=== PATIENT | female | born 1995 | race Two or more races ===

== ENCOUNTER 2022-12-03 21:15 | Emergency (ER) | payer OTHER ==
[~2022-12-03] VITALS: Ht 160 cm; Wt 90.7 kg
[2022-12-03] MEDS ORDERED: ZYRTEC10 M3 (21:22)
== END 2022-12-04 02:24 | disposition home or self-care (01) ==
LOC: ER 21:15
DX: O99.511 Diseases of the respiratory system complicating pregnancy, first trimester (principal); O21.8 Other vomiting complicating pregnancy; Z3A.01 Less than 8 weeks gestation of pregnancy; J10.1 Influenza due to other identified influenza virus with other respiratory manifestations; J45.909 Unspecified asthma, uncomplicated; Z20.822 Contact with and (suspected) exposure to COVID-19; Z88.0 Allergy status to penicillin

== ENCOUNTER 2023-03-25 06:51 | Emergency (ER) | payer OTHER ==
[~2023-03-25] VITALS: Ht 160 cm; Wt 89.8 kg
[~2023-03-25 06:51] MED LIST: ZYRTEC10 M3
[2023-03-25] MEDS ORDERED: IPRATROPIU0.2 MG/1 M IH (07:30)
[2023-03-25] MEDS ORDERED: PRIMACARE SOFT1 EACH PO (07:30)
== END 2023-03-25 10:19 | disposition home or self-care (01) ==
LOC: ER 06:51
DX: J45.901 Unspecified asthma with (acute) exacerbation (principal); Z88.0 Allergy status to penicillin
CPT/HCPCS: 94640; 96365; J2930

== ENCOUNTER 2023-06-09 20:56 | Inpatient (IN) | payer OTHER ==
[~2023-06-09] VITALS: Ht 157.5 cm; Wt 93.0 kg
[~2023-06-09 20:56] MED LIST changes: +IPRATROPIU0.2 MG/1 M IH; +PRIMACARE SOFT1 EACH PO
[2023-06-09] MEDS ORDERED: MAGNESIUM SULFATE IN WATER 4 GM/100 ML PIGGYBACK IV ONE (21:19)
[2023-06-09] MEDS ORDERED: LABETALOL HCL 200 MG TABLET PO ONE (21:20)
[2023-06-09] MEDS ORDERED: BETAMETHASONE ACETATE,SOD PHOS 30 MG/5 ML ML ONE (21:22)
[2023-06-09] MEDS ORDERED: RINGERS SOLUTION,LACTATED 1,000 ML IV SCH (21:30)
[2023-06-09] MEDS ORDERED: BETAMETHASONE ACETATE,SOD PHOS 30 MG/5 ML ML IM ONE (21:30)
[2023-06-09] MEDS ORDERED: ACETAMINOPHEN 500 MG GEL..CAP PO PRN (21:45)
[2023-06-09] MEDS ORDERED: LABETALOL HCL 200 MG TABLET PO SCH (21:45)
[2023-06-09] MEDS ORDERED: MAGNESIUM SULFATE IN WATER 100 ML IV ONE (21:45)
[2023-06-09] MEDS ORDERED: MAGNESIUM SULFATE IN WATER 0.04 GM/ML IV.SOLN IV SCH (21:45)
[2023-06-09] MEDS ORDERED: CETIRIZINE HCL 5 MG/5 ML ML PO SCH (21:45)
[2023-06-09] MEDS ORDERED: FAMOTIDINE/PF 20 MG/2 ML VIAL IV PRN (21:45)
[2023-06-09 22:11] LABS: HEMATOCRIT 32.8 % (36.0-45.00); MEAN CELL VOLUME 85.3 fL (80.00-100.00); MEAN CORPUSCULAR HEMOGLOBIN 28.6 pg (27.00-32.0); MEAN CORPUSCULAR HGB CONC 33.6 g/dl (32.0-36.0); PLATELET COUNT 308 K/uL (150-450); RED BLOOD COUNT 3.85 M/uL (4.00-6.00); RED CELL DISTRIBUTION WIDTH 13.6 % (11.5-14.5); URINE APPEARANCE Cloudy; URINE BILIRRUBIN Negative (NEGATIVE); URINE BLOOD Negative; URINE COLOR Yellow; URINE GLUCOSE Negative (NEGATIVE); URINE LEUKOCYTE Moderate; URINE NITRATE Negative; URINE PROTEIN 30 (NEGATIVE)
[2023-06-09 22:14] LABS: URINE BACTERIA 4806.7 uL (0.0-1933); URINE RBC 5.1 uL (0.0-20.8); URINE WBC 408.1 uL (0.0-23.2)
[2023-06-09 22:34] LABS: ALBUMIN 2.9 gm/dL (3.4-5.0); BILIRUBIN TOTAL 0.38 mg/dL (0.3-1.2); CALCIUM 9.1 mg/dL (8.5-10.1); CREATININE SERUM 0.56 mg/dL (0.55-1.02); GFR 128.9; GLOBULINA 3.2 G/DL (2.4-3.5); POTASSIUM 4.13 mEq/L (3.5-5.1); TOTAL PROTEIN 6.1 gm/dL (6.4-8.2)
[2023-06-09 22:37] LABS: INR < 0.93; PROTHROMBIN TIME 9.5 SECONDS (9.0-11.5)
[2023-06-09 22:38] LABS: PARTIAL THROMBOPLASTIN TIME 26.2 SECONDS (22.0-34.0)
[2023-06-10 08:03] LABS: ALBUMIN 2.6 gm/dL (3.4-5.0); BILIRUBIN TOTAL 0.4 mg/dL (0.3-1.2); CALCIUM 9.1 mg/dL (8.5-10.1); CREATININE SERUM 0.63 mg/dL (0.55-1.02); GFR 112.52; GLOBULINA 3.6 G/DL (2.4-3.5); MAGNESIUM 4.1 mg/dL (1.8-2.4); POTASSIUM 4.55 mEq/L (3.5-5.1); TOTAL PROTEIN 6.2 gm/dL (6.4-8.2)
[2023-06-10 08:07] LABS: HEMATOCRIT 31.7 % (36.0-45.00); HEMOGLOBIN 10.3 g/dL (12.0-15.00); MEAN CORPUSCULAR HGB CONC 32.5 g/dl (32.0-36.0); PLATELET COUNT 320 K/uL (150-450); RED BLOOD COUNT 3.69 M/uL (4.00-6.00); RED CELL DISTRIBUTION WIDTH 14.1 % (11.5-14.5)
[2023-06-10] MEDS ORDERED: MAGNESIUM SULFATE IN WATER 500 ML IV SCH (09:45)
[2023-06-10] MEDS ORDERED: CETIRIZINE HCL 5 MG/5 ML ML PO SCH (21:00)
[2023-06-10] MEDS ORDERED: BETAMETHASONE ACETATE,SOD PHOS 30 MG/5 ML ML IM ONE (21:30)
[2023-06-10] MEDS ORDERED: MAGNESIUM SULFATE IN WATER IV SCH (21:45)
== END 2023-06-11 14:21 | disposition home or self-care (01) | DRG 833 ==
LOC: LDR 20:56
PROVIDERS: ADMIT Obstetrics & Gynecology Gynecology; ATTEND Obstetrics & Gynecology Gynecology
PROC: 4A1HXCZ Monitoring of Products of Conception, Cardiac Rate, External Approach (ICD-10-PCS; principal; 2023-06-09)
PROC: BY4FZZZ Ultrasonography of Third Trimester, Single Fetus (ICD-10-PCS; 2023-06-09)
DX: O13.3 Gestational [pregnancy-induced] hypertension without significant proteinuria, third trimester (principal); Z3A.34 34 weeks gestation of pregnancy; Z20.822 Contact with and (suspected) exposure to COVID-19

== ENCOUNTER 2023-06-13 13:32 | Inpatient (IN) | payer OTHER ==
[~2023-06-13] VITALS: Ht 157.5 cm; Wt 3.2 kg
[2023-06-13] MEDS ORDERED: MAGNESIUM SULFATE IN WATER 0.04 GM/ML IV.SOLN IV ONE (13:39)
[2023-06-13] MEDS ORDERED: MAGNESIUM SULFATE IN WATER 4 GM/100 ML PIGGYBACK IV ONE (13:39)
[2023-06-13 14:11] LABS: URINE APPEARANCE Cloudy; URINE BILIRRUBIN Negative (NEGATIVE); URINE BLOOD Negative; URINE COLOR Yellow; URINE GLUCOSE Negative (NEGATIVE); URINE LEUKOCYTE Large; URINE NITRATE Negative; URINE PROTEIN Negative (NEGATIVE)
[2023-06-13] MEDS ORDERED: LABETALOL HCL200 MG PO (14:13)
[2023-06-13 14:15] LABS: HEMATOCRIT 30.7 % (36.0-45.00); HEMOGLOBIN 10.1 g/dL (12.0-15.00); MEAN CELL VOLUME 85.1 fL (80.00-100.00); MEAN CORPUSCULAR HGB CONC 32.8 g/dl (32.0-36.0); PLATELET COUNT 305 K/uL (150-450); RED BLOOD COUNT 3.61 M/uL (4.00-6.00); RED CELL DISTRIBUTION WIDTH 14.4 % (11.5-14.5); URINE BACTERIA 3616.1 uL (0.0-1933); URINE EPITHELIAL CELLS 80.3 uL (0.0-38.8); URINE RBC 2.8 uL (0.0-20.8); URINE WBC 209.1 uL (0.0-23.2)
[2023-06-13] MEDS ORDERED: LABETALOL HCL 100 MG/20 ML ML IV PUSH ONE (14:15)
[2023-06-13] MEDS ORDERED: MAGNESIUM SULFATE IN WATER 100 ML IV SCH (14:15)
[2023-06-13] MEDS ORDERED: RINGERS SOLUTION,LACTATED 1,000 ML IV SCH (14:15)
[2023-06-13] MEDS ORDERED: MAGNESIUM SULFATE IN WATER 500 ML IV SCH (14:15)
[2023-06-13 14:41] LABS: ALBUMIN 2.8 gm/dL (3.4-5.0); BILIRUBIN TOTAL 0.36 mg/dL (0.3-1.2); CALCIUM 9.6 mg/dL (8.5-10.1); CREATININE SERUM 0.5 mg/dL (0.55-1.02); GFR 146.91; GLOBULINA 3.4 G/DL (2.4-3.5); POTASSIUM 4.21 mEq/L (3.5-5.1); TOTAL PROTEIN 6.2 gm/dL (6.4-8.2)
[2023-06-13 15:42] LABS: INR < 0.93; PROTHROMBIN TIME 9.5 SECONDS (9.0-11.5)
[2023-06-13 15:43] LABS: PARTIAL THROMBOPLASTIN TIME 23.5 SECONDS (22.0-34.0)
[2023-06-13] MEDS ORDERED: LABETALOL HCL 200 MG TABLET PO SCH (17:00)
[2023-06-14] MEDS ORDERED: ACETAMINOPHEN 500 MG GEL..CAP PO ONE ×2 (01:35→01:45)
[2023-06-14] MEDS ORDERED: ACETAMINOPHEN 500 MG GEL..CAP PO PRN (22:15)
[2023-06-15 10:12] LABS: HEMATOCRIT 30.6 % (36.0-45.00); HEMOGLOBIN 10.2 g/dL (12.0-15.00); MEAN CELL VOLUME 85.6 fL (80.00-100.00); MEAN CORPUSCULAR HEMOGLOBIN 28.4 pg (27.00-32.0); MEAN CORPUSCULAR HGB CONC 33.2 g/dl (32.0-36.0); PH,URINE 5.5 (5.0-8.0); PLATELET COUNT 321 K/uL (150-450); RED BLOOD COUNT 3.58 M/uL (4.00-6.00); RED CELL DISTRIBUTION WIDTH 14.1 % (11.5-14.5); URINE APPEARANCE Cloudy; URINE BILIRRUBIN Negative (NEGATIVE); URINE BLOOD Negative; URINE COLOR Yellow; URINE GLUCOSE Negative (NEGATIVE); URINE LEUKOCYTE Large; URINE NITRATE Negative; URINE PROTEIN Negative (NEGATIVE); URINE UROBILINOGEN 0.2 E.U./dl
[2023-06-15 10:13] LABS: URINE BACTERIA 3965.2 uL (0.0-1933); URINE EPITHELIAL CELLS 75.4 uL (0.0-38.8); URINE RBC 8.1 uL (0.0-20.8); URINE WBC 193.2 uL (0.0-23.2)
[2023-06-15 10:46] LABS: ALBUMIN 2.7 gm/dL (3.4-5.0); BILIRUBIN TOTAL 0.44 mg/dL (0.3-1.2); CALCIUM 8.8 mg/dL (8.5-10.1); CREATININE SERUM 0.66 mg/dL (0.55-1.02); GFR 106.64; GLOBULINA 3.5 G/DL (2.4-3.5); POTASSIUM 4.51 mEq/L (3.5-5.1); TOTAL PROTEIN 6.2 gm/dL (6.4-8.2)
[2023-06-15] MEDS ORDERED: DOCUSATE CALCIUM 240 MG CAPSULE PO SCH (21:00)
[2023-06-17] MEDS ORDERED: MAGNESIUM SULFATE IN WATER 500 ML IV SCH (09:00)
[2023-06-18] MEDS ORDERED: MAGNESIUM SULFATE IN WATER 0.04 GM/ML IV.SOLN IV ONE (06:06)
[2023-06-18] MEDS ORDERED: PNV,CALCIUM 72/IRON/FOLIC ACID 1 TAB TABLET PO SCH (09:55)
[2023-06-20 14:43] LABS: HEMATOCRIT 30.6 % (36.0-45.00); HEMOGLOBIN 10.1 g/dL (12.0-15.00); MEAN CELL VOLUME 85.2 fL (80.00-100.00); MEAN CORPUSCULAR HGB CONC 32.9 g/dl (32.0-36.0); PLATELET COUNT 269 K/uL (150-450); RED BLOOD COUNT 3.59 M/uL (4.00-6.00); RED CELL DISTRIBUTION WIDTH 14.4 % (11.5-14.5)
[2023-06-20 15:15] LABS: ALBUMIN 2.6 gm/dL (3.4-5.0); BILIRUBIN TOTAL 0.4 mg/dL (0.3-1.2); CALCIUM 9.5 mg/dL (8.5-10.1); CREATININE SERUM 0.58 mg/dL (0.55-1.02); GFR 123.79; GLOBULINA 3.2 G/DL (2.4-3.5); POTASSIUM 4.26 mEq/L (3.5-5.1); TOTAL PROTEIN 5.8 gm/dL (6.4-8.2)
[2023-06-20 15:48] LABS: URINE APPEARANCE Cloudy; URINE BILIRRUBIN Negative (NEGATIVE); URINE BLOOD Negative; URINE COLOR Yellow; URINE GLUCOSE Negative (NEGATIVE); URINE LEUKOCYTE Large; URINE NITRATE Negative; URINE PROTEIN Trace (NEGATIVE)
[2023-06-20 15:53] LABS: URINE BACTERIA 5465.6 uL (0.0-1933); URINE EPITHELIAL CELLS 105.9 uL (0.0-38.8); URINE RBC 7.9 uL (0.0-20.8); URINE WBC 431.3 uL (0.0-23.2)
[2023-06-21] MEDS ORDERED: OXYTOCIN 10 UNITS/ML VIAL ONE ×2 (09:09→16:28)
[2023-06-21] MEDS ORDERED: ERYTHROMYCIN BASE 3.5 GM OINT...G. OP ONE (09:09)
[2023-06-21] MEDS ORDERED: CLINDAMYCIN PHOSPHATE 150 MG/ML (600mg) ONE (09:40)
[2023-06-21] MEDS ORDERED: CLINDAMYCIN PHOSPHATE 150 MG/ML (600mg) IV ONE (10:30)
[2023-06-21] MEDS ORDERED: OXYTOCIN 10 UNITS/ML VIAL IV ONE (11:00)
[2023-06-21] MEDS ORDERED: ERYTHROMYCIN BASE 1 GM TUBE OP ONE (11:00)
[2023-06-21] MEDS ORDERED: MEPERIDINE HCL/PF 50 MG/ML VIAL IM PRN (11:30)
[2023-06-21] MEDS ORDERED: IBUprofen 400 MG TABLET PO PRN (11:30)
[2023-06-21] MEDS ORDERED: OXYTOCIN 1,000 ML IV SCH (11:30)
[2023-06-21] MEDS ORDERED: hydrALAZINE HCL 20 MG VIAL ONE (15:53)
[2023-06-22] MEDS ORDERED: LABETALOL HCL 300 MG TABLET PO SCH (01:00)
[2023-06-22] MEDS ORDERED: OxyCODONE HCL/APAP UD (PERCOCET) PO PRN ×2 (08:00→09:15)
[2023-06-22 09:08] LABS: HEMATOCRIT 29.7 % (36.0-45.00); MEAN CELL VOLUME 85.4 fL (80.00-100.00); MEAN CORPUSCULAR HEMOGLOBIN 28.6 pg (27.00-32.0); MEAN CORPUSCULAR HGB CONC 33.5 g/dl (32.0-36.0); PLATELET COUNT 234 K/uL (150-450); RED BLOOD COUNT 3.47 M/uL (4.00-6.00); RED CELL DISTRIBUTION WIDTH 14.2 % (11.5-14.5)
[2023-06-22] MEDS ORDERED: DOCUSATE SODIUM 100MG CAP PO SCH (17:15)
== END 2023-06-24 13:29 | disposition home or self-care (01) | DRG 785 ==
LOC: OB/GYN 13:32 → LDR 13:32 → O/R 06-14 13:22 → LDR 06-14 13:23 → OB/GYN 06-15 10:34
PROVIDERS: Obstetrics & Gynecology; ADMIT Obstetrics & Gynecology Maternal & Fetal Medicine; ATTEND Obstetrics & Gynecology Maternal & Fetal Medicine
PROC: 4A1HXCZ Monitoring of Products of Conception, Cardiac Rate, External Approach (ICD-10-PCS; 2023-06-13)
PROC: BY4FZZZ Ultrasonography of Third Trimester, Single Fetus (ICD-10-PCS; 2023-06-13)
PROC: 0UB70ZZ Excision of Bilateral Fallopian Tubes, Open Approach (ICD-10-PCS; 2023-06-21)
PROC: 10D00Z1 Extraction of Products of Conception, Low, Open Approach (ICD-10-PCS; principal; 2023-06-21 10:00)
DX: O60.14X0 Preterm labor third trimester with preterm delivery third trimester, not applicable or unspecified (principal); O14.14 Severe pre-eclampsia complicating childbirth; O34.211 Maternal care for low transverse scar from previous cesarean delivery; Z37.0 Single live birth; Z3A.33 33 weeks gestation of pregnancy; Z20.822 Contact with and (suspected) exposure to COVID-19; Z3A.35 35 weeks gestation of pregnancy; Z30.2 Encounter for sterilization